=== PATIENT | male | born 1995 | race American Indian/Alaskan Native ===

== ENCOUNTER 2016-11-18 11:56 | Emergency (ER) | payer BC ==
[2016-11-18 15:51] LABS: Basophils % (Auto) 0.9 % (0.0-1.8); Eosinophils % (Auto) 2.5 % (0.0-4.3); Hematocrit 43.4 % (35.5-45.6); Hemoglobin 14.9 gm/dl (11.8-15.2); Mean Corpuscular HGB Conc 34 % (32-34); Mean Corpuscular Hemoglobin 32 pg (28-32); Mean Corpuscular Volume 94 fl (84-94); Platelet Count 240 K/mm3 (140-440); Red Blood Count 4.63 M/mm3 (3.65-5.03); Red Cell Distribution Width 13.8 % (13.2-15.2); White Blood Count 6.6 K/mm3 (4.5-11.0)
[2016-11-18 16:08] LABS: Anion Gap 18 mmol/L; BUN/Creatinine Ratio 14; Blood Urea Nitrogen 11 mg/dL (9-20); Calcium 9.6 mg/dL (8.4-10.2); Carbon Dioxide 26 mmol/L (22-30); Chloride 98.2 mmol/L (98-107); Glucose 138 mg/dL (75-100); Potassium 3.8 mmol/L (3.6-5.0); Sodium 138 mmol/L (137-145)
--- NOTE | 2016-11-19 00:17 | Emergency Department Report ---
ED Chest Pain HPI - General Chief Complaint: Chest Pain Stated Complaint: CHEST PAIN,HEART PALPATION Time Seen by Provider: 11/19/16 00:16 Source: patient, family Mode of arrival: Ambulatory Limitations: No Limitations - History of Present Illness Initial Comments: This is a 21-year-old male, the patient is previously known to this provider. He has no chronic medical conditions that he is aware of, does not take aspirin , and denies cocaine use. Presents to the ER with intermittent chest discomfort. The discomfort does not radiate to the back, arms or neck, there is no vomiting, diaphoresis or shortness of breath, there is no leg pain, there is no leg swelling, no recent trips, no recent surgeries, no family history of heart disease and/or pulmonary embolus/DVT that he is aware of. Patient's mother is at the bedside, and she corroborates all of this. MD Complaint: chest pain -: Gradual Onset: during rest Pain Radiation: none Severity: mild Severity scale (0 -10): 6 Quality: aching Consistency: intermittent Improves With: nothing Worsens With: nothing Aspirin use within the Past 7 Days: (0) No - Related Data On Oral Contraceptives: No Previous Rx's Medication Instructions Recorded Last Taken Type Acetaminophen [Tylenol Arthritis] 650 mg PO Q6HR PRN #30 tablet.er 11/19/16 Unknown Rx Ibuprofen [Motrin] 600 mg PO Q8H PRN #30 tablet 11/19/16 Unknown Rx Allergies Allergy/AdvReac Type Severity Reaction Status Date / Time No Known Allergies Allergy Verified 11/18/16 12:19 Heart Score - HEART Score History: Slightly suspicious EKG: Normal Age: < 45 Risk factors: No known risk factors Troponin: < normal limit HEART Score: 0 - Critical Actions Critical Actions: 0-3 pts:0.9-1.7%risk of adverse cardiac event.Candidate for discharge ED Review of Systems ROS: Stated complaint: CHEST PAIN,HEART PALPATION Other details as noted in HPI Constitutional: denies: fever Eyes: denies: vision change ENT: denies: epistaxis Respiratory: denies: cough Cardiovascular: chest pain Gastrointestinal: denies: vomiting Genitourinary: denies: dysuria Musculoskeletal: denies: back pain Skin: denies: lesions Neurological: denies: weakness Psychiatric: anxiety ED Past Medical Hx - Past Medical History Previous Medical History?: Yes Additional medical history: anxiety - Surgical History Past Surgical History?: Yes Additional Surgical History: left hand - Social History Smoking Status: Current Every Day Smoker Substance Use Type: None - Medications Home Medications: Home Medications Medication Instructions Recorded Confirmed Last Taken Type Acetaminophen [Tylenol Arthritis] 650 mg PO Q6HR PRN #30 tablet.er 11/19/16 Unknown Rx Ibuprofen [Motrin] 600 mg PO Q8H PRN #30 tablet 11/19/16 Unknown Rx ED Physical Exam - General Limitations: No Limitations General appearance: alert, in no apparent distress - Head Head exam: Present: atraumatic, normocephalic - Eye Eye exam: Present: normal appearance, EOMI. Absent: nystagmus - ENT ENT exam: Present: normal exam, normal orophraynx, mucous membranes moist, normal external ear exam - Neck Neck exam: Present: normal inspection, full ROM. Absent: tenderness, meningismus - Respiratory Respiratory exam: Present: normal lung sounds bilaterally. Absent: respiratory distress, wheezes, rales, rhonchi, stridor, chest wall tenderness, accessory muscle use, decreased breath sounds, prolonged expiratory - Cardiovascular Cardiovascular Exam: Present: regular rate, normal rhythm, normal heart sounds. Absent: bradycardia, tachycardia, irregular rhythm, systolic murmur, diastolic murmur, rubs, gallop - GI/Abdominal GI/Abdominal exam: Present: soft, normal bowel sounds. Absent: distended, tenderness, guarding, rebound, rigid, pulsatile mass - Rectal Rectal exam: Present: deferred - Extremities Exam Extremities exam: Present: normal inspection, full ROM, normal capillary refill. Absent: pedal edema, joint swelling, calf tenderness - Back Exam Back exam: Present: normal inspection, full ROM. Absent: tenderness, CVA tenderness (R), CVA tenderness (L), muscle spasm, paraspinal tenderness, vertebral tenderness - Neurological Exam Neurological exam: Present: alert, oriented X3, normal gait, other (Extraocular movements intact. Tongue midline. No facial droop. Facial sensation intact to light touch in the V1, V2, V3 distribution bilaterally. 5 and 5 strength in 4 extremities.. Sensation is intact to light touch in 4 extremities.). Absent : motor sensory deficit - Psychiatric Psychiatric exam: Present: anxious - Skin Skin exam: Present: warm, dry, intact, normal color. Absent: rash ED Course Vital Signs 11/18/16 11/18/16 11/18/16 12:14 18:21 23:41 Temperature 98.7 F 98.4 F 99.4 F Pulse Rate 79 74 59 L Respiratory 18 18 18 Rate Blood Pressure 146/110 144/77 Blood Pressure 135/81 [Right] O2 Sat by Pulse 100 100 100 Oximetry 11/18/16 11/19/16 11/19/16 23:46 01:34 02:00 Temperature Pulse Rate 70 Respiratory 18 18 18 Rate Blood Pressure Blood Pressure 130/86 [Right] O2 Sat by Pulse 100 Oximetry CHRISTEN score - Christen Score Age > 65: (0) No Aspirin use within the Past 7 Days: (0) No 3 or more CAD Risk Factors: (0) No 2 or more Angina events in past 24 hrs: (0) No Known CAD with more than 50% Stenosis: (0) No Elevated Cardiac Markers: (0) No ST Deviation Greater than 0.5mm: (0) No CHRISTEN Score: 0 ED Medical Decision Making - Lab Data Result diagrams: 11/18/16 15:35 11/18/16 15:35 - EKG Data -: EKG Interpreted by Me EKG shows normal: sinus rhythm Rate: normal - EKG Data 11/19/16 00:46 EKG #1 demonstrates normal sinus, 78 bpm, normal axis, normal intervals, not morphologically consistent with STEMI, high left ventricular voltage, incomplete right bundle branch block, may be secondary to lead placement EKG #2 demonstrates normal sinus, 70 bpm, normal intervals, normal axis, not morphologically consistent with STEMI - Radiology Data Radiology results: image reviewed interpreted by me: X-ray the chest was negative for acute disease - Medical Decision Making Differential diagnosis: GERD, gastritis, pneumonia, pericarditis, myocarditis, pneumothorax, costochondritis, anxiety Assessment and plan: 21-year-old male with 1 week of atypical chest pain, low risk by CHRISTEN score, low risk by heart score, low risk by well's criteria, perc negative, unremarkable physical exam, no family history of heart disease or pulmonary embolus/DVT, troponin negative 3, EKG unremarkable, chest x-ray negative, physical exam within normal limits, unlikely to be emergent or dangerous at this time. Patient feels improved after symptomatically therapy, patient will be discharged with instructions to follow up with outpatient primary care or cardiology. This was discussed extensively with the patient and his mother, both of whom verbalized understanding, patient is able to follow up at this time. Given lack of tachycardia, negative troponins, pericarditis and myocarditis unlikely. Critical care attestation.: If time is entered above; I have spent that time in minutes in the direct care of this critically ill patient, excluding procedure time. ED Disposition Clinical Impression: Chest discomfort Disposition: DC-01 TO HOME OR SELFCARE Is pt being admited?: No Does the pt Need Aspirin: No Condition: Stable Instructions: Chest Pain (ED) Additional Instructions: Rest and avoid heavy lifting. Avoid strenuous physical activity. Take the pain medication as directed. Follow up with a primary care doctor or therapy administrative assistant within the next week. Return to the ER right away with new pain, worsening pain, migration of pain, fevers, chills, lethargy, irritability, projectile vomiting, confusion, change in mental status, inability to tolerate liquid feeds, loss of consciousness, vomiting blood, defecating blood. Prescriptions: Acetaminophen [Tylenol Arthritis] 650 mg PO Q6HR PRN #30 tablet.er PRN Reason: Pain Ibuprofen [Motrin] 600 mg PO Q8H PRN #30 tablet PRN Reason: Pain Referrals: PRIMARY CARE,MD [Primary Care Provider] - 3-5 Days [facility] [Provider Group] - 3-5 Days [facility] [Provider Group] - 3-5 Days [facility] [Provider Group] - 3-5 Days Forms: Accompanied Note
[2016-11-19] MEDS ORDERED: TYLENOL PO ONE (00:45)
[2016-11-19] MEDS ORDERED: MOTRIN PO ONE (00:45)
[2016-11-19 02:01] VITALS: BP 130/86
--- NOTE | 2016-11-19 08:25 | XRay Report ---
CHEST 2 VIEWS INDICATION: Chest pain. COMPARISON: None similar at this institution. FINDINGS: PA and lateral chest radiographs demonstrate normal cardiomediastinal silhouette. Clear lungs. Intact bones. CONCLUSION: No acute disease in the chest. Thank you for the opportunity to participate in this patient's care.
== END 2016-11-19 02:01 | disposition home or self-care (01) ==
LOC: ED 11:56
DX: R07.9 Chest pain, unspecified (principal); F17.200 Nicotine dependence, unspecified, uncomplicated
CPT/HCPCS: 36415; 71020; 80048; 84484; 85025; 93005; 93010